=== PATIENT | female | born 1955 | race Caucasian/White ===

== ENCOUNTER 2016-12-29 21:53 | Inpatient (IN) | payer MEDICARE, MEDICAID ==
[2016-12-29] MEDS ORDERED: Nitroglycerin 2% OINT* 1 GM PAK TOPICAL ONE (22:20)
[2016-12-29] MEDS ORDERED: Nitroglycerin 2% OINT* 1 GM PAK ONE (22:34)
[2016-12-29 22:38] LABS: Hematocrit 33 % (35-47); Hemoglobin 11.1 g/dl (12.0-16.0); Mean Corpuscular HGB Conc 33 g/dl (31-36); Mean Corpuscular Hemoglobin 29 pg (27-31); Mean Corpuscular Volume 86 fL (80-97); Mean Platelet Volume 9 um3 (7.4-10.4); Red Blood Count 3.89 10^6/ul (4.0-5.4); Red Cell Distribution Width 18 % (10.5-15); White Blood Count 11.9 10^3/ul (3.5-10.8)
[2016-12-29 22:51] LABS: Albumin 3.9 g/dL (3.2-5.2); BUN/Creatinine Ratio 14.3 (8-20); Calcium 8.7 mg/dL (8.6-10.3); EGFR African American 89.2 (>60); EGFR Non-African American 69.4 (>60); Globulin 3.4 g/dL (2-4); Magnesium 1.3 mg/dL (1.9-2.7); Total Bilirubin 0.8 mg/dL (0.2-1.0); Total Protein 7.3 g/dL (6.4-8.9)
[2016-12-29 22:52] LABS: Potassium 3.8 mmol/L (3.5-5.0); Troponin I 0.01 ng/mL (<0.04)
--- NOTE | 2016-12-29 23:06 | RAD ---
Indication: Chest pain. Single frontal view of the chest performed at 2230 hours was reviewed. No prior studies available for comparison.. No mediastinal shift is noted. Heart is of normal size and configuration. Lung corea appear clear. Cervical fusion is noted. IMPRESSION: NO ACTIVE CARDIOPULMONARY DISEASE IS NOTED.
--- NOTE | 2016-12-30 00:47 | ED ---
Cristhian Dowd Adam, scribed for Chepe Leon on 12/29/16 at 2206 . HPI Chest Pain - HPI Summary HPI Summary: Pt is a 61 year old female presenting with chest pain. It set on at 20:45 as the pt was finishing dinner and it has been constant since then. It is located in the right anterior region of her chest and it radiates to her right arm. She describes the pain as a heaviness that is a 6/10 in severity. She took NTG after the pain set on but the pain has persisted. Pt also c/o SOB and dizziness. She denies abdominal pain and diaphoresis. PMHx of AK x2. She last had a cardiac catheterization approximately 5 years ago. She has no stents. She states that she had a "non-stress" stress test after the catheterization 5 years ago. She is followed by her capital markets specialist. She takes baby ASA every day. Pt denies any Hx of tobacco, alcohol, or drug use. FMHx of cardiac disease. - History of Current Complaint Chief Complaint: EDChestWallPain Time Seen by Provider: 12/29/16 22:01 Hx Obtained From: Patient Onset/Duration: Started Hours Ago, Atraumatic, Still Present Timing: Constant Initial Severity: Moderate Current Severity: Moderate Pain Intensity: 6 Pain Scale Used: 0-10 Numeric Chest Pain Location: Right Anterior Chest Pain Radiates: Yes Chest Pain Radiates To:: Arm - Right Character: Heaviness Aggravating Factor(s): Nothing Alleviating Factor(s): Nothing Associated Signs and Symptoms: Positive: Dizziness, Shortness of Breath. Negative: Diaphoresis, Abdominal Pain - Allergy/Home Medications Allergies/Adverse Reactions: Allergies Allergy/AdvReac Type Severity Reaction Status Date / Time Clarithromycin Allergy Hives Verified 12/29/16 23:04 Tramadol [From Ultracet] Allergy Hives Verified 12/29/16 22:24 PMH/Surg Hx/FS Hx/Imm Hx Endocrine/Hematology History: Reports: Hx Diabetes Cardiovascular History: Reports: Hx Hypertension, Hx Myocardial Infarction Infectious Disease History: Denies: Traveled Outside the [place] in Last 30 Days - Family History Known Family History: Positive: Cardiac Disease - Social History Occupation: Unemployed Lives: With Family Alcohol Use: None Hx Substance Use: No Substance Use Type: Reports: None Hx Tobacco Use: No Smoking Status (MU): Never Smoked Tobacco Review of Systems Negative: Fever, Skin Diaphoresis Positive: Chest Pain Positive: Shortness Of Breath Negative: Abdominal Pain Neurological: Other - Dizziness All Other Systems Reviewed And Are Negative: Yes Physical Exam Triage Information Reviewed: Yes Vital Signs Reviewed: Yes Appearance: Positive: Well-Appearing, No Pain Distress Skin: Positive: Warm, Skin Color Reflects Adequate Perfusion, Dry Head/Face: Positive: Normal Head/Face Inspection Eyes: Positive: EOMI, SMITHA ENT: Positive: Normal ENT inspection Neck: Positive: Supple, Nontender Respiratory/Lung Sounds: Positive: Clear to Auscultation, Breath Sounds Present Cardiovascular: Positive: RRR, Pulses are Symmetrical in both Upper and Lower Extremities Abdomen Description: Positive: Nontender, Soft Bowel Sounds: Positive: Present Musculoskeletal: Positive: Normal, Strength/ROM Intact Diagnostics - Laboratory Result Diagrams: 12/29/16 22:12 12/29/16 22:12 Lab Statement: Any lab studies that have been ordered have been reviewed, and results considered in the medical decision making process. - Radiology CXR Radiology Interpretation Completed By: Radiologist - IMPRESSION: NO ACTIVE CARDIOPULMONARY DISEASE IS NOTED. - EKG 22:04 Cardiac Rate: Bradycardia - 59 BPM EKG Rhythm: Sinus Bradycardia - Additional Comments Diagnostic Additional Comments: Troponin I - 0.01 Chest Pain Course/Dx - Diagnoses Provider Diagnoses: Chest pain, Unstable angina - Provider Notifications Discussed Care Of Patient With: Dr. Brannon (hospitalist) at 23:30. Patient will be admitted. Dr. Brannon will decide upon anticoagulant therapy as per discussion. Discharge - Discharge Plan Condition: Stable Disposition: ADMITTED TO [facility] Referrals: No Primary Care Phys,NOPCP [Primary Care Provider] - The documentation as recorded by the Cristhian kang Adam accurately reflects the service I personally performed and the decisions made by , Chepe Leon.
[2016-12-30] MEDS ORDERED: (Combivent Respimat) INH PRN (01:04)
[2016-12-30] MEDS ORDERED: Heparin DRIP 25,000 UNITS(*) 25,000 UNITS/500 ML BAG IV SCH (01:15)
[2016-12-30] MEDS ORDERED: Diclofenac 1% GEL (NF) 100 GM TUBE TOPICAL SCH (01:30)
[2016-12-30] MEDS ORDERED: Heparin VIAL(*) 5000 UNITS/ML VIAL (FIVE THOUSAND) IV SCH (02:00)
[2016-12-30] MEDS ORDERED: Dextrose 50% Syringe 50 ML* 25 GM/50 ML SYRINGE IV PUSH PRN (02:14)
[2016-12-30 03:20] LABS: Hematocrit 32 % (35-47); Hemoglobin 10.7 g/dl (12.0-16.0); Mean Corpuscular HGB Conc 33 g/dl (31-36); Mean Corpuscular Hemoglobin 29 pg (27-31); Mean Corpuscular Volume 86 fL (80-97); Mean Platelet Volume 9 um3 (7.4-10.4); Red Blood Count 3.75 10^6/ul (4.0-5.4); Red Cell Distribution Width 17 % (10.5-15); White Blood Count 11.5 10^3/ul (3.5-10.8)
--- NOTE | 2016-12-30 03:53 | HP ---
HISTORY AND PHYSICAL: DATE OF ADMISSION: CHIEF COMPLAINT: Chest pain. HISTORY OF PRESENT ILLNESS: The patient is a 61-year-old woman who just had supper and then developed jaw pain on the right side, which became chest pain that radiated to her right arm. At its worst, it was 8/10 in severity. She took her nitroglycerin, which did not help, so she called the EMS. She got 4 baby aspirin and 4 sublingual nitroglycerin by EMS and still did not help much. She had no nausea or vomiting. She had no sweating. She had some slight shortness of breath and no palpitations. She became concerned because this is how her 2 MIs presented in the past. She received a nitro patch in the ER and the pain resolved. PAST MEDICAL HISTORY: Significant for coronary artery disease with 2 MIs, but not stents. Diabetes mellitus type2, hypothyroidism, hypertension, renal cell carcinoma, asthma, sleep apnea, on CPAP, rheumatoid arthritis. PAST SURGICAL HISTORY: Brain meningioma resected, low back laminectomy, bilateral knee replacements, appendectomy, cholecystectomy, JOSE and BSO, ankle surgery, partial nephrectomy. CURRENT MEDICATIONS: 1. Ranexa 500 mg twice daily. 2. Nasonex 50 mcg inhaled daily. 3. Cyclosporin 2 drops both eyes twice daily. 4. Combivent 1 inhaled daily as needed. 5. Ranitidine 300 mg at bedtime. 6. Pataday one drop both eyes daily. 7. Protonix 40 mg twice daily. 8. Imipramine 20 mg at bedtime. 9. Carvedilol 50 mg daily. 10. Aspirin 81 mg daily. 11. Metformin twice daily. 12. Levothyroxine 125 mcg daily. 13. Bydureon 2 mg subcu weekly. 14. Mometasone 50 mcg inhaled twice daily. 15. Hydrochlorothiazide 12.5 daily. 16. Losartan 50 mg daily. 17. Isosorbide mononitrate ER 60 mg daily. 18. Rosuvastatin 10 mg daily. 19. Diltiazem HCl 180 mg daily. 20. Triamcinolone apply twice daily. 21. Enbrel 50 mg subcu q.7 days. 22. Voltaren apply topically weekly. 23. Zanaflex 8 mg at bedtime. 24. Methotrexate 20 mg every week. 25. Folic acid 1 mg daily. 26. Duloxetine 60 mg daily. 27. Gabapentin 300 mg three times a day. FAMILY HISTORY: Mother at 70, had acute renal failure, diabetes. Father at 79 of bladder cancer. SOCIAL HISTORY: No tobacco, no alcohol or recreational drug use. 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 She is . Her sister, Christina Garrison, is her healthcare proxy. Doughnut Icer is Dr. Bass in [place]. REVIEW OF SYSTEMS: A 14-point review of systems was completed with the patient. All pertinent positive and negatives included in the history of present illness, otherwise it is negative. PHYSICAL EXAMINATION GENERAL: A pleasant woman, lying in bed, in no acute distress. VITAL SIGNS: Blood pressure , pulse ox 97%, respiratory rate 17 breaths per minute, heart rate 68 beats per minute, temperature of 98.5. HEENT: Normocephalic, atraumatic. Pupils equal, round, and reactive to light. Moist mucous membranes. NECK: Supple. No JVD, bruits, palpable thyroid, or lymphadenopathy. CHEST: Clear to auscultation and percussion bilaterally. CARDIOVASCULAR: S1, S2 appreciated. ABDOMEN: Positive bowel sounds in all 4 quadrants. Soft, nontender, nondistended. EXTREMITIES: No cyanosis, clubbing, or edema. +2 peripheral pulses bilaterally. NEUROLOGIC: Alert and oriented x 3. Moves all extremities. SKIN: No rashes or abnormalities. LABORATORY DATA: White count 11.9, hemoglobin 11.1, hematocrit 33, platelets 252. INR of 1.18. Sodium 132, potassium 3.8, chloride 95, CO2 30, BUN 12, creatinine 0.84, glucose 109. Troponin 0.01. Chest x-ray shows no active cardiopulmonary disease. EKG shows sinus bradycardia, 59 beats per minute. Left axis deviation. Left anterior hemiblock and no acute ST-T wave changes. ASSESSMENT AND PLAN: 1. Unstable angina. I believe this is what the patient has. I will put her on heparin drip. I will ask Cardiology to see her in the morning. She may benefit from the cardiac catheterization. I will cycle troponins as well. 2. Hypothyroidism, stable. Continue Synthroid. 3. Diabetes mellitus. Fingerstick with sliding scale insulin. 4. Rheumatoid arthritis, asymptomatic. Enbrel and methotrexate as an outpatient. 5. Hypertension, poor control. Continue with current medications and adjust accordingly. 6. DVT prophylaxis. Heparin drip. 7. FEN, n.p.o. 8. The patient is a full code. TIME SPENT: Over 75 minutes were spent on this H and P, more than 40 minutes was spent in direct face to face contact with the patient, evaluation, physical examination, counseling and coordination of care. CC: Dr. Leona Gaona [place]* [id number]/CPS #: [id number] MTDD
[2016-12-30 05:58] LABS: Hematocrit 32 % (35-47); Hemoglobin 10.8 g/dl (12.0-16.0); Mean Corpuscular HGB Conc 34 g/dl (31-36); Mean Corpuscular Hemoglobin 29 pg (27-31); Mean Corpuscular Volume 86 fL (80-97); Mean Platelet Volume 9 um3 (7.4-10.4); Red Blood Count 3.74 10^6/ul (4.0-5.4); Red Cell Distribution Width 17 % (10.5-15); White Blood Count 10.3 10^3/ul (3.5-10.8)
[2016-12-30] MEDS ORDERED: Insulin LISPRO* 1 UNITS UNIT SUBCUT SCH ×2 (06:00→11:30)
[2016-12-30] MEDS ORDERED: Levothyroxine TAB* 125 MCG TAB PO SCH (06:00)
[2016-12-30 06:16] LABS: Troponin I 0.01 ng/mL (<0.04)
[2016-12-30] MEDS: Gabapentin CAP(*) 300 MG PO SCH ×2 (08:18→13:01)
[2016-12-30] MEDS ORDERED: Diltiazem CD CAP* 180 MG PO SCH (09:00)
[2016-12-30] MEDS ORDERED: Folic Acid TAB* 1 MG PO SCH (09:00)
[2016-12-30] MEDS ORDERED: Omeprazole CAP* 20 MG PO SCH (09:00)
[2016-12-30] MEDS ORDERED: Atorvastatin* 20 MG TAB PO SCH (09:00)
[2016-12-30] MEDS ORDERED: Hydrochlorothiazide TAB* 25 MG PO SCH (09:00)
[2016-12-30] MEDS ORDERED: Triamcinolone 0.5% OINT * 15 GM TUBE TOPICAL SCH (09:00)
[2016-12-30] MEDS ORDERED: Isosorbide Mononitrate ER TAB* 60 MG PO SCH (09:00)
[2016-12-30] MEDS ORDERED: Losartan TAB* 25 MG PO SCH (09:00)
[2016-12-30] MEDS ORDERED: DULoxetine DR CAP* 60 MG CAP.DR PO SCH (09:00)
[2016-12-30] MEDS ORDERED: Olopatadine 0.2% (NF) 1 DROP BTL BOTH EYES SCH (09:00)
[2016-12-30] MEDS ORDERED: Cyclosporine 0.05% OPHTH (NF) 0.4 ML VIAL BOTH EYES SCH (09:00)
[2016-12-30] MEDS ORDERED: Ranolazine (NF) 500 MG TAB PO SCH (09:00)
[2016-12-30] MEDS ORDERED: Aspirin EC Low Dose* 81 MG TAB.EC PO SCH (09:00)
[2016-12-30] MEDS ORDERED: Carvedilol TAB* 25 MG PO SCH (09:00)
[2016-12-30] MEDS ORDERED: Nitroglycerin 0.4 MG/HR PATCH* (10 MG) TRANSDERM SCH (09:00)
--- NOTE | 2016-12-30 11:24 | PN ---
Subjective Date of Service: 12/30/16 Interval History: patient denies any further CP and feels that she is at her baseline. PATIENT DOES NOT WANT TO STAY FOR A CARDIAC STRESS TEST TOMORROW - HER TWO SISTERS ARE AT THE BEDSIDE AND WANT THE PATIENT TO BE dc'D TO HOME AND FOLLOW UP WITH HER OWN CERTIFIED SCRUM MASTER. I SPOKE WITH THE PATIENT AND THE SISTERS AND THEY AGREED TO MEET WITH DR. ESCOBAR - WHO RECOMMENDED STRESS TEST TOMORROW. THE PATIENT STATED AGAIN SHE WANTS TO SIGN OUT AMA AND SHE STATES SHE UNDERSTANDS THE RISKS OF , DISABILITY, NE, SEVERE ILLNESS. Objective Active Medications: Albuterol/Ipratropium (Combivent Respimat(Nf)) 1 puff INH DAILY PRN; Protocol PRN Reason: WHEEZING Aspirin (Aspirin Ec Low Dose*) 81 mg PO DAILY [facility] Last Admin: 12/30/16 08:18 Dose: 81 mg Atorvastatin Calcium (Lipitor*) 20 mg PO DAILY ALFREDO PRN Reason: Protocol Last Admin: 12/30/16 08:17 Dose: 20 mg Carvedilol (Coreg Tab*) 50 mg PO DAILY [facility] Last Admin: 12/30/16 08:19 Dose: 50 mg Cyclosporine (Restasis 0.05% Oph) 2 drop BOTH EYES BID ALFREDO PRN Reason: Protocol Last Admin: 12/30/16 08:21 Dose: Not Given Dextrose (D50w Syringe 50 Ml*) 12.5 gm IV PUSH .FOR FS < 60 - SS PRN PRN Reason: FS < 60 Diclofenac Sodium (Voltaren 1% Gel (Nf)) 1 applic TOPICAL WEEKLY [facility] PRN Reason: Protocol Diltiazem HCl (Cardizem Cd Cap*) 180 mg PO DAILY [facility] Last Admin: 12/30/16 08:19 Dose: 180 mg Duloxetine HCl (Cymbalta Cap*) 60 mg PO DAILY [facility] Last Admin: 12/30/16 08:16 Dose: 60 mg Famotidine (Pepcid Tab*) 40 mg PO BEDTIME ALFREDO PRN Reason: Protocol Folic Acid (Folvite Tab*) 1 mg PO DAILY [facility] Last Admin: 12/30/16 08:18 Dose: 1 mg Gabapentin (Neurontin Cap(*)) 300 mg PO TID [facility] Last Admin: 12/30/16 08:18 Dose: 300 mg Heparin Sodium (Porcine) (Heparin Vial(*)) 0 units IV .PER PROTOCOL ALFREDO PRN Reason: Protocol Hydrochlorothiazide (Hydrodiuril Tab*) 12.5 mg PO DAILY [facility] Last Admin: 12/30/16 08:17 Dose: 12.5 mg Heparin Sodium/Dextrose (Heparin Drip 25,000 Units(*)) 25,000 units in 500 mls @ 0 mls/hr IV .NO INITIAL BOLUS ALFREDO; As Directed PRN Reason: Protocol Last Admin: 12/30/16 02:59 Dose: 23 mls/hr Magnesium Sulfate (Magnesium Sulf 4 Gm/100 Ml Iv*) 4,000 mg in 100 mls @ 33.333 mls/hr IVPB ONCE ONE Stop: 12/30/16 14:16 Imipramine HCl (Imipramine (Nf)) 20 mg PO BEDTIME ALFREDO PRN Reason: Protocol Insulin Human Lispro (Humalog*) 0 units SUBCUT Q6HR ALFREDO PRN Reason: Protocol Last Admin: 12/30/16 06:27 Dose: 3 units Isosorbide Mononitrate (Imdur Er Tab*) 60 mg PO DAILY [facility] Last Admin: 12/30/16 08:19 Dose: 60 mg Levothyroxine Sodium (Synthroid Tab*) 125 mcg PO 0600 [facility] Last Admin: 12/30/16 06:26 Dose: 125 mcg Losartan Potassium (Cozaar Tab*) 50 mg PO DAILY [facility] Last Admin: 12/30/16 08:16 Dose: 50 mg Nitroglycerin (Nitroglycerin 10 Mg Patch*) 1 patch TRANSDERM DAILY [facility] Last Admin: 12/30/16 08:22 Dose: 1 patch Olopatadine HCl (Pataday 0.2% (Nf)) 1 drop BOTH EYES DAILY [facility] Last Admin: 12/30/16 08:21 Dose: Not Given Omeprazole (Prilosec Cap*) 20 mg PO BID [facility] Last Admin: 12/30/16 08:19 Dose: 20 mg Pharmacy Profile Note (Nitro Patch/Oint Remove*) 1 note PATCH OFF 2100 [facility] Ranolazine (Ranexa (Nf)) 500 mg PO BID ALFREDO PRN Reason: Protocol Last Admin: 12/30/16 08:21 Dose: Not Given Tizanidine HCl (Zanaflex Tab*) 8 mg PO BEDTIME [facility] Triamcinolone Acetonide (Triamcinolone 0.5% Oint *) 1 applic TOPICAL BID [facility] Last Admin: 12/30/16 08:20 Dose: 1 applic Vital Signs 12/30/16 12/30/16 12/30/16 02:09 06:52 08:01 Temperature 97.7 F 98.5 F Pulse Rate 61 63 Respiratory 16 18 18 Rate Blood Pressure 154/88 161/83 (mmHg) O2 Sat by Pulse 97 97 Oximetry 12/30/16 12/30/16 08:18 10:06 Temperature Pulse Rate Respiratory 18 18 Rate Blood Pressure (mmHg) O2 Sat by Pulse Oximetry Oxygen Devices in Use Now: None Appearance: OBESE 61 YO FEMALE LAYINGIN BED IN NAD A+O x3 Eyes: No Scleral Icterus, PERRLA Ears/Nose/Mouth/Throat: NL Teeth, Lips, Gums, Mucous Membranes Moist Neck: NL Appearance and Movements; NL JVP Respiratory: Symmetrical Chest Expansion and Respiratory Effort, Clear to Auscultation Cardiovascular: NL Sounds; No Murmurs; No JVD, RRR, No Edema Abdominal: NL Sounds; No Tenderness; No Distention, - - obese Extremities: No Edema, No Clubbing, Cyanosis Skin: No Rash or Ulcers, No Nodules or Sclerosis Neurological: Alert and Oriented x 3, NL Sensation, NL Gait, NL Muscle Strength and Tone Lines/Tubes/Other Access: Clean, Dry and Intact Peripheral IV Nutrition: Taking PO's Result Diagrams: 12/30/16 11:39 12/30/16 11:35 Assess/Plan/Problems-Billing Assessment: 61 yo female with a PMH of CAD s/p MIs, DM2, hypothyroidism, HTN, rebal cell carcinoma, asthma, DIPESH on CPAP and RA who presented with Chest Pain . - Patient Problems (1) Chest pain Comment: - concern for unstable angina was started on a Heparin gtt on admission. No further CP since admission. Troponins 0.01 x2. EKG showing sinus yudi left axis - no acute ST changes noted. Repeat EKG now, continue to trend trops. - Cardiology consulted who recommended a stress test in am - no ACS. Pt has also had 5 caths with no stenting, some disease noted. Possible vaso-spasm? - continue home meds (2) Rheumatoid arthritis Comment: etanercept and methotrexate as an outpt (3) DIPESH (obstructive sleep apnea) Comment: - continue cpap (4) HTN (hypertension) Comment: continue home medications coreg, losartan, cardizem (5) Diabetes Comment: - FSBG QACHS with Lispro SS (6) Hypothyroidism Comment: - add on TSH - continue synthroid (7) DVT prophylaxis Comment: Heparin gtt (8) Full code status Status and Disposition: inpatient with chest pain concern for unstable angina. PATIENT SIGNED HERSELF OUT AMA.
[2016-12-30] MEDS ORDERED: Magnesium Sulf 4 GM/100 ML IV* 4,000 MG/100 ML BAG IVPB ONE (12:00)
[2016-12-30 12:02] LABS: Hematocrit 33 % (35-47); Hemoglobin 10.7 g/dl (12.0-16.0); Mean Corpuscular HGB Conc 33 g/dl (31-36); Mean Corpuscular Hemoglobin 29 pg (27-31); Mean Corpuscular Volume 87 fL (80-97); Mean Platelet Volume 9 um3 (7.4-10.4); Red Blood Count 3.73 10^6/ul (4.0-5.4); Red Cell Distribution Width 17 % (10.5-15); White Blood Count 7.5 10^3/ul (3.5-10.8)
[2016-12-30 12:07] VITALS: BP 126/52
[2016-12-30 12:12] LABS: TSH (Thyroid Stimulating Horm) 1.98 mcIU/mL (0.34-5.60)
[2016-12-30 12:20] LABS: BUN/Creatinine Ratio 16.9 (8-20); Calcium 8.8 mg/dL (8.6-10.3); EGFR Non-African American 93.3 (>60); Magnesium 1.4 mg/dL (1.9-2.7); Potassium 3.6 mmol/L (3.5-5.0)
[2016-12-30 13:29] LABS: Troponin I 0.01 ng/mL (<0.04)
--- NOTE | 2016-12-30 15:23 | CONSULT ---
Subjective Date of Service: 12/30/16 Interval History: Admission Date: 12/30/16 Service: Hospitalist PMD: Dr. Leona Gaona, [place] CHIEF COMPLAINT: Chest pain. Reason for consult HISTORY OF PRESENT ILLNESS: Kaylan Ontiveros is a 61-year-old woman who lives with her two sisters who are present. They live in the [place] area but were here taking a drive as they often do. Patient had finished dinner near [place] and developed right sided jaw and chest pressure that radiated to her right arm. She took a SL NTG with no relief. She was going to take another but EMS was there by then. She states she received 4 baby aspirins and 4 more SL NTGs in EMS did not help at all. Came to [facility] states was given another SL NTG and a patch and discomfort went from a 8 to a 6/10. By the time she reached telemetry floor discomfort was 1-2/10 and gradually dissipated throughout the night. She has remained pain free since then. There was no change in breathing, palpitations, or syncope. I do not have her prior records but she states she had a silent CT at some point , then a known CT in 1983. She has had an atrial fibrillation ablation. She has had 5 diagnostic coronary angiograms most recently last year that showed some blockage "not enough to stent" and some very mild plaque in other places. She is being treated with multiple anti-anginals. PAST MEDICAL HISTORY: Atrial fibrillation CAD DM hypothyroidism, hypertension, renal cell carcinoma, asthma, sleep apnea, on CPAP, rheumatoid arthritis. PAST SURGICAL HISTORY: Brain meningioma resected, low back laminectomy, bilateral knee replacements, appendectomy, cholecystectomy, JOSE and BSO, ankle surgery, partial nephrectomy. FAMILY HISTORY: Mother at 70, had acute renal failure, diabetes. Father at 79 of bladder cancer. SOCIAL HISTORY: No tobacco, no alcohol or recreational drug use. 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 She is . Her sister, Christina Garrison, is her healthcare proxy. Instrument Lens Grinder Apprentice is Dr. Bass in [place]. Medications Active Medications: Albuterol/Ipratropium (Combivent Respimat(Nf)) 1 puff INH DAILY PRN; Protocol PRN Reason: WHEEZING Aspirin (Aspirin Ec Low Dose*) 81 mg PO DAILY [facility] Last Admin: 12/30/16 08:18 Dose: 81 mg Atorvastatin Calcium (Lipitor*) 20 mg PO DAILY [facility] PRN Reason: Protocol Last Admin: 12/30/16 08:17 Dose: 20 mg Carvedilol (Coreg Tab*) 50 mg PO DAILY [facility] Last Admin: 12/30/16 08:19 Dose: 50 mg Cyclosporine (Restasis 0.05% Ophth) 2 drop BOTH EYES BID [facility]FR[facility] PRN Reason: Protocol Last Admin: 12/30/16 08:21 Dose: Not Given Dextrose (D50w Syringe 50 Ml*) 12.5 gm IV PUSH .FOR FS < 60 - SS PRN PRN Reason: FS < 60 Diclofenac Sodium (Voltaren 1% Gel (Nf)) 1 applic TOPICAL WEEKLY [facility]FR[facility] PRN Reason: Protocol Diltiazem HCl (Cardizem Cd Cap*) 180 mg PO DAILY [facility] Last Admin: 12/30/16 08:19 Dose: 180 mg Duloxetine HCl (Cymbalta Cap*) 60 mg PO DAILY [facility] Last Admin: 12/30/16 08:16 Dose: 60 mg Famotidine (Pepcid Tab*) 40 mg PO BEDTIME [facility] PRN Reason: Protocol Folic Acid (Folvite Tab*) 1 mg PO DAILY [facility] Last Admin: 12/30/16 08:18 Dose: 1 mg Gabapentin (Neurontin Cap(*)) 300 mg PO TID [facility] Last Admin: 12/30/16 13:01 Dose: 300 mg Heparin Sodium (Porcine) (Heparin Vial(*)) 0 units IV .PER PROTOCOL [facility] PRN Reason: Protocol Last Admin: 12/30/16 12:27 Dose: 3,250 units Hydrochlorothiazide (Hydrodiuril Tab*) 12.5 mg PO DAILY [facility] Last Admin: 12/30/16 08:17 Dose: 12.5 mg Heparin Sodium/Dextrose (Heparin Drip 25,000 Units(*)) 25,000 units in 500 mls @ 0 mls/hr IV .NO INITIAL BOLUS ALFREDO; As Directed PRN Reason: Protocol Last Admin: 12/30/16 02:59 Dose: 23 mls/hr Imipramine HCl (Imipramine (Nf)) 20 mg PO BEDTIME [facility] PRN Reason: Protocol Insulin Human Lispro (Humalog*) 0 units SUBCUT ACHS [facility] PRN Reason: Protocol Last Admin: 12/30/16 11:37 Dose: 3 units Isosorbide Mononitrate (Imdur Er Tab*) 60 mg PO DAILY [facility] Last Admin: 12/30/16 08:19 Dose: 60 mg Levothyroxine Sodium (Synthroid Tab*) 125 mcg PO 0600 [facility] Last Admin: 12/30/16 06:26 Dose: 125 mcg Losartan Potassium (Cozaar Tab*) 50 mg PO DAILY [facility] Last Admin: 12/30/16 08:16 Dose: 50 mg Nitroglycerin (Nitroglycerin 10 Mg Patch*) 1 patch TRANSDERM DAILY [facility] Last Admin: 12/30/16 08:22 Dose: 1 patch Olopatadine HCl (Pataday 0.2% (Nf)) 1 drop BOTH EYES DAILY [facility] Last Admin: 12/30/16 08:21 Dose: Not Given Omeprazole (Prilosec Cap*) 20 mg PO BID [facility] Last Admin: 12/30/16 08:19 Dose: 20 mg Pharmacy Profile Note (Nitro Patch/Oint Remove*) 1 note PATCH OFF 2100 [facility] Ranolazine (Ranexa (Nf)) 500 mg PO BID [facility] PRN Reason: Protocol Last Admin: 12/30/16 08:21 Dose: Not Given Tizanidine HCl (Zanaflex Tab*) 8 mg PO BEDTIME [facility] Triamcinolone Acetonide (Triamcinolone 0.5% Oint *) 1 applic TOPICAL BID [facility] Last Admin: 12/30/16 08:20 Dose: 1 applic Home Medications: Albuterol/Ipratropium RESP(NF) [Combivent Respimat(NF)] 1 aer INH DAILY PRN [History Confirmed 12/30/16] Aspirin [Aspirin 81 MG TAB] 81 mg PO DAILY 12/30/16 [History Confirmed 12/30/16] Carvedilol TAB* [Coreg TAB*] 50 mg PO DAILY 12/30/16 [History Confirmed 12/30/16 ] Cyclosporine 0.05% OPHTH (NF) [Restasis 0.05% OPHTH] 2 drop BOTH EYES BID [History Confirmed 12/30/16] DULoxetine CAP* [Cymbalta CAP*] 60 mg PO DAILY 12/30/16 [History Confirmed ] Diclofenac 1% GEL (NF) [Voltaren 1% GEL (NF)] 1 applic TOPICAL WEEKLY 12/30/16 [ History Confirmed 12/30/16] Diltiazem HCl Coated Beads [Cartia Xt] 180 mg PO DAILY 12/30/16 [History Confirmed 12/30/16] Etanercept SYR (NF) [Enbrel (NF)] 50 mg SUBCUT Q7D 12/30/16 [History Confirmed 12/30/16] Exenatide [Bydureon] 2 mg SUBCUT WEEKLY 12/30/16 [History Confirmed 12/30/16] Folic Acid TAB* [Folvite TAB*] 1 mg PO DAILY 12/30/16 [History Confirmed ] Gabapentin CAP(*) [Neurontin 300 CAP(*)] 300 mg PO TID 12/30/16 [History Confirmed 12/30/16] Hydrochlorothiazide [Microzide-] 12.5 mg PO DAILY 12/30/16 [History Confirmed ] Imipramine (NF) 20 mg PO BEDTIME 12/30/16 [History Confirmed 12/30/16] Isosorbide Mononitrate ER TAB* [Imdur ER TAB*] 60 mg PO DAILY 12/30/16 [History Confirmed 12/30/16] Levothyroxine TAB* [Synthroid TAB*] 125 mcg PO DAILY 12/30/16 [History Confirmed 12/30/16] Losartan Potassium [Cozaar] 50 mg PO DAILY 12/30/16 [History Confirmed 12/30/16] Methotrexate TAB* 20 mg PO Q7D 12/30/16 [History Confirmed 12/30/16] Mometasone NASAL (NF) [Nasonex (NF)] 50 mcg INH BID 12/30/16 [History Confirmed 12/30/16] Mometasone NASAL (NF) [Nasonex (NF)] 50 mcg INH DAILY 12/30/16 [History Confirmed 12/30/16] Olopatadine 0.2% (NF) [Pataday 0.2% (NF)] 1 drop BOTH EYES DAILY 12/30/16 [ History Confirmed 12/30/16] Pantoprazole TAB (NF) [Protonix TAB (NF)] 40 mg PO BID 12/30/16 [History Confirmed 12/30/16] Ranitidine TAB (NF) [Zantac TAB (NF)] 300 mg PO BEDTIME 12/30/16 [History Confirmed 12/30/16] Ranolazine (NF) [Ranexa (NF)] 500 mg PO BID 12/30/16 [History Confirmed 12/30/16 ] Rosuvastatin (NF) [Crestor (NF)] 10 mg PO DAILY 12/30/16 [History Confirmed ] Tizanidine HCl [Zanaflex] 8 mg PO BEDTIME 12/30/16 [History Confirmed 12/30/16] Triamcinolone 0.5% OINT * 1 applic TOPICAL BID 12/30/16 [History Confirmed 12/30] metFORMIN* [Glucophage 1000 MG TAB *] 1,000 mg PO BID 12/30/16 [History Confirmed 12/30/16] Review of Systems - Measurements Intake and Output: Intake and Output Last 24 Hours 12/28/16 12/29/16 12/30/16 12/31/16 06:59 06:59 06:59 06:59 Intake Total 87 360 Balance 87 360 Weight 255 lb Intake: Heparin 87 Oral 0 360 Other: Estimated Void Medium # Bowel Movements 0 # Voids 2 - Review of Systems Constitutional Symptoms: Negative: Weight Loss, Weakness, Fatigue, Fever, Unexplained Falls Dermatology: Negative: Rash, Skin Lesions, Skin Lumps HEENT: Negative: Change in Hearing, Vertigo, Tinnitus Eyes: Negative: Change in Vision, Double Vision, Eye Pain Thyroid: Negative: Sweatiness, Palpitations, Weight Loss, Weight Gain, Change in Skin/ Hair, Change in Menstration Pulmonary: Negative: Cough, Sputum, Hemoptysis, Wheezing, Respiratory Distress Cardiology: Positive: Chest Pain Negative: Shortness of Breath, Palpitations, Swelling of Ankles, Peripheral Vascular Dis, Edema, Faintness, Syncope, Claudication, Paroxysmal Nocturnal Dyspnea, Orthopnea Gastroenterology: Negative: Abdominal Pain, Nausea, Vomiting, Anorexia, Melena Genital - Urinary: Negative: Dysuria, Hematuria Musculoskeletal: Negative: Joint Pain, Joint Stiffness, Arthritis Endocrinology: Positive: Obesity Negative: Menstrual Abnormalities, Polydipsia, Polyuria, Gynecomastia Hematologic/Lymphatic: Positive: Use of Antiplatelet Drugs Negative: Hx Leukemia, Hx Lymphoma, Use of Anticoagulant Neurology: Negative: Headaches, Migraines, Change in Vision, Diplopia, Dizziness, Change in Balancing, Change in Coordination, Change in Memory, Hx of Stroke\\TIA , Hx Seizures Psychiatry: Negative: Sexual Dysfunction, Weight Change, Guilt Feelings, Tearfulness Allergic/Immunologic: Negative: Hx HIV, Immunocompromise, Swollen Glands Lymph Nodes Review of Systems Statement: All other review of systems negative, unless stated above. Objective Vital Signs: Temp Pulse Resp BP Pulse Ox 98.3 F 62 18 126/52 96 12/30/16 11:34 12/30/16 11:34 12/30/16 15:01 12/30/16 11:34 12/30/16 11:34 Ears/Nose/Mouth/Throat: Clear Oropharnyx, Mucous Membranes Moist Neck: Trachea Midline Respiratory: Symmetrical Chest Expansion and Respiratory Effort, Clear to Auscultation Cardiovascular: NL Sounds; No Murmurs; No JVD, RRR, No Edema Abdominal: NL Sounds; No Tenderness; No Distention Extremities: No Edema, No Clubbing, Cyanosis Skin: No Rash or Ulcers Neurological: Alert and Oriented x 3 Laboratory Results: 12/30/16 11:39 12/30/16 11:35 INR (Anticoag Therapy) 1.18 (0.89-1.11) H 12/29/16 22:12 APTT 41.2 seconds (26.0-36.3) H 12/30/16 11:39 Total Bilirubin 0.80 mg/dL (0.2-1.0) 12/29/16 22:12 AST 46 U/L (13-39) H 12/29/16 22:12 ALT 37 U/L (7-52) 12/29/16 22:12 Alkaline Phosphatase 61 U/L (34-104) 12/29/16 22:12 B-Natriuretic Peptide 14 pg/mL (-100) 12/29/16 22:12 Total Protein 7.3 g/dL (6.4-8.9) 12/29/16 22:12 Albumin 3.9 g/dL (3.2-5.2) 12/29/16 22:12 Globulin 3.4 g/dL (2-4) 12/29/16 22:12 Albumin/Globulin Ratio 1.1 (1-3) 12/29/16 22:12 TSH 1.98 mcIU/mL (0.34-5.60) 12/30/16 05:33 04/22/17 04/23/17 04/23/17 22:12 05:33 11:35 Troponin I 0.01 0.01 0.01 EKG Data: EKG 12/29/2016: NSR, poor R wave progression consider old anteroseptal CT Assessment/Plan I am uncertain the cause of Kaylan's presentation. With chest discomfort that lasted for as long as it did, I would have expected a cardiac cause would have been accompanied by a rise in her serial troponin (they stayed normal) I advised her to stay inpatient while we request records from [place] and likely proceed with an ischemic evaluation after that. She declined and has decided to leave against the medical advise of the hospital. She is going to call her transit authority police officer, Dr. Bass tomorrow morning to arrange follow up
[2016-12-30] MEDS ORDERED: Famotidine TAB* 20 MG PO SCH (21:00)
[2016-12-30] MEDS ORDERED: IMIPRAMINE 10 MG PO SCH (21:00)
[2016-12-30] MEDS ORDERED: tiZANidine TAB* 2 MG PO SCH (21:00)
[2016-12-30] MEDS ORDERED: Nitro Patch/OINT Remove PATCH OFF SCH (21:00)
--- NOTE | 2016-12-31 05:10 | DS ---
DISCHARGE SUMMARY: DATE OF ADMISSION: 12/29/16 DATE OF DISCHARGE: 12/30/16 ATTENDING PHYSICIAN: Krissy Crawford MD * (report dictated by Luisa William NP). PRIMARY CARE PROVIDER: Dr. Leona Gaona, [place], [place]. PLEASE NOTE THE PATIENT LEFT AGAINST MEDICAL ADVICE. SUMMARY: Ms. Ontiveros is a 61-year-old woman who presented to the emergency department on 12/29/16 with complaint of chest pain that radiated to the right side of her jaw and down her right arm, reporting 8/10 in severity. She reports she took one nitroglycerin, which did not help and she called EMS. EMS gave her 4 baby aspirins and 4 sublingual nitroglycerin, which she reports did not help. She denied any nausea or vomiting or diaphoresis. The patient was admitted to the hospitalist service where her initial troponin was 0.01. Her EKG showed sinus bradycardia with a heart rate of 59 with a noted left axis deviation and left anterior hemiblock and no acute ST-T wave changes. On admission, the patient was started on a heparin drip for concern for unstable angina. She was seen this morning by myself. The patient denied any further chest pain. She had 3 troponins, all are 0.01. The patient wanted to be discharged to home with followup with her own coding compliance manager in [place]. The patient reports that she has undergone cardiac catheterizations at [place] and she has known coronary artery disease, but has not had stents placed in the past. She was seen by coding compliance manager, Dr. Shahid, who recommended the patient undergo a cardiac nuclear stress test tomorrow and the patient insisted on being discharged to follow up with her own coding compliance manager. I discussed the risks of unstable angina with the patient as well as risks of , severe disability , and severe illness. The patient states understanding. The patient's two sisters were at the bedside who were encouraging the patient to sign out against medical advice. Again, the risks were discussed. The patient signed out the paperwork and left. TIME SPENT: Approximately 45 minutes was spent. LUISA WILLIAM NP CC: Dr. Cori Zenobia Gaona * [id number]/[facility] #: [id number] [facility]ITAL[facility]
== END 2016-12-30 16:00 | disposition left against medical advice (07) | DRG 303 ==
LOC: EDBD → ED 21:53 → MEDTELE 12-30 02:08
PROVIDERS: ADMIT Internal Medicine; ATTEND Internal Medicine
DX: I25.110 Atherosclerotic heart disease of native coronary artery with unstable angina pectoris (principal); Z68.41 Body mass index [BMI] 40.0-44.9, adult; I10 Essential (primary) hypertension; I48.91 Unspecified atrial fibrillation; R00.1 Bradycardia, unspecified; E66.9 Obesity, unspecified; G47.33 Obstructive sleep apnea (adult) (pediatric); E11.9 Type 2 diabetes mellitus without complications; E03.9 Hypothyroidism, unspecified; J45.909 Unspecified asthma, uncomplicated; M06.9 Rheumatoid arthritis, unspecified; Z96.653 Presence of artificial knee joint, bilateral; I25.2 Old myocardial infarction; Z83.3 Family history of diabetes mellitus; Z88.1 Allergy status to other antibiotic agents; Z88.6 Allergy status to analgesic agent; Z82.49 Family history of ischemic heart disease and other diseases of the circulatory system; Z80.52 Family history of malignant neoplasm of bladder; Z85.528 Personal history of other malignant neoplasm of kidney; Z90.710 Acquired absence of both cervix and uterus; Z79.82 Long term (current) use of aspirin; Z85.841 Personal history of malignant neoplasm of brain
CPT/HCPCS: 36415; 71010; 80048; 80053; 83605; 83735; 83880; 84443; 84484; 84520; 85025; 85610; 85730; 93005; A9270-GY; J1644

== ENCOUNTER 2018-03-22 16:39 | Emergency (ER) | payer MEDICARE, MEDICAID ==
[2018-03-22] MEDS ORDERED: NS 0.9% 1000 ML* 2,000 ML IV SCH (17:30)
[2018-03-22 17:38] LABS: Hematocrit 34 % (35-47); Hemoglobin 11.2 g/dl (12.0-16.0); Mean Corpuscular HGB Conc 33 g/dl (31-36); Mean Corpuscular Hemoglobin 28 pg (27-31); Mean Corpuscular Volume 83 fL (80-97); Mean Platelet Volume 8.4 um3 (7.4-10.4); Platelet Count 324 10^3/ul (150-450); Red Blood Count 4.06 10^6/ul (4.00-5.40); Red Cell Distribution Width 17 % (10.5-15); White Blood Count 18.7 10^3/ul (3.5-10.8)
--- NOTE | 2018-03-22 17:43 | ED ---
HPI Cardiac - HPI Summary HPI Summary: A 62 y/o female CHAVO presents to ED s/p heat exhaustion and near sync[facility]. Currently, the patient is already doing better at time of arrival and has no chest pain or SOB. According to the patient, she was walking down the [place] with her sister and service dog. After walking 3/4 of a mile from the top of the hill down, she exhibited rapid heart beats/heart palpitations coupled with SOB, dizziness and shakes. She denies any CP, nausea, vomit, however she stated that her stomach "feels off" and she has chronic neck pain. She stopped on the trail and received water from a couple walking by. The water seemed to help mildly, however "it did not do a whole lot". Resting, water and getting out of the heat helped alleviate the symptoms. Another family of spectators stopped to check up on them which she believes is the one who notified headquarters of the [facility] [employer]. After walking about a half mile and stopping several times, police and park officials came up and made the patient stop and drink more water with EMS posting shortly after. Pt had to be "ext[place]" from [place] with equipment from EMS. It was noted that another spectator ran up and down the trail to give her water. In the room, patient has a pulse of 81 BPM, blood pressure is 134/78 and O2 saturation of 96%. PMHx of two knee replacements, left ankle total repair, toes repair, appendectomy, gallbladder hysterectomy, two MD's and DM (on trail take EMS, sugar was 212). It was noted that the patient has not eaten lately, but she thinks her sugar is fine, however she is hungry. Her facilities specialist, Dr. Bass, is located in [facility]. She is currently on antibiotics, augmentin and penicillin, for a sinus infection since 03/18/2018. FHx of DM, HTN and heart disease. PCP is Dr. Leona [facility]ona at [facility]. Pt is from the [place] area, however has been in [facility] before, states that she signed out AMA "about a year ago " (noted in records 12/27/16) during an evaluation for chest pain because she felt fine, and just wanted to get home to her own facilities specialist. - History of Current Complaint Chief Complaint: EDGeneral Stated Complaint: PALPITATIONS Time Seen by Provider: 03/22/18 17:15 Hx Obtained From: Patient, Family/Manager Trust - 2 sisters here with patient, Medical Records - [facility] 12/27/16 Onset/Duration: Started Hours Ago - During trail hike, Resolved - No current symptoms. Feels better now. Timing: Lasting Minutes - During trail hike. Initial Severity: Severe - palpitations, no chest pain Current Severity: None Pain Intensity: 0 Pain Scale Used: 0-10 Numeric Chest Pain Radiates: No Character: Fast, Other: - Palpitations. Aggravating Factor(s): Nothing, Exertion, Other: - heat Alleviating Factor(s): Rest, Other: - Water and getting out of heat. Associated Signs and Symptoms: Positive: Dizziness, Shortness of Breath - During hike, not currently, Other: - Rapid heart beats, shakes. Negative: Chest Pain, Nausea, Vomiting Related History: Obesity - Risk Factors Cardiac Risk Factors: Diabetes, Prior MD, CAD - Allergy/Home Medications Allergies/Adverse Reactions: Allergies Allergy/AdvReac Type Severity Reaction Status Date / Time acetaminophen [From Ultracet] Allergy Hives Verified 03/22/18 16:48 tramadol [From Ultracet] Allergy Hives Verified 03/22/18 16:48 bioxin Allergy Airway Uncoded 03/22/18 16:48 Obstruction PMH/Surg Hx/FS Hx/Imm Hx Previously Healthy: No Endocrine/Hematology History: Reports: Hx Diabetes Cardiovascular History: Reports: Hx Angina, Hx Hypertension, Hx Myocardial Infarction Denies: Hx Peripheral Vascular Disease Respiratory History: Reports: Hx Asthma Musculoskeletal History: Denies: Hx Arthritis Sensory History: Denies: Hx Contacts or Glasses, Hx Hearing Aid Opthamlomology History: Denies: Hx Contacts or Glasses Neurological History: Denies: Hx Headaches, Hx Seizures, Hx Transient Ischemic Attacks (TIA) - Cancer History Cancer Type, Location and Year: Kidney, partial nephrectomy - Surgical History Surgery Procedure, Year, and Place: partial nephrectomy Infectious Disease History: No Infectious Disease History: Denies: Traveled Outside the [place] in Last 30 Days - Family History Known Family History: Positive: Cardiac Disease, Hypertension, Diabetes - Social History Alcohol Use: None Hx Substance Use: No Substance Use Type: Reports: None Hx Tobacco Use: No Smoking Status (MU): Never Smoked Tobacco Review of Systems Positive: Other - NEGATIVE: Shakes, during trail hike, currently none. Negative : Fever Positive: Palpitations, Other - POSITIVE: Fast heart rate. Negative: Chest Pain Negative: Shortness Of Breath - During trail hike, currently none Negative: Vomiting, Nausea Positive: Other - POSITIVE: Chronic neck pain Positive: Other - flushed, red Neurological: Other - NEGATIVE: Dizziness, during trail hike, currently none Psychological: Normal All Other Systems Reviewed And Are Negative: Yes Physical Exam - Summary Physical Exam Summary: Appearance: Well-appearing, no pain distress, well-nourished, obese, flushed Skin: Warm, color reflects adequate perfusion, dry Head: Normal Head/Face inspection, atraumatic Eyes: Conjunctiva clear ENT: Normal inspection Neck: Supple, no nodes, no JVD Respiratory: Lungs clear, normal breath sounds, no respiratory distress Cardio: RRR, No murmur, pulses normal, brisk capillary refill Abdomen: Soft, nontender Bowel sounds: Present Musculoskeletal: Strength Intact/ROM intact, no calf tenderness, no edema. Psychological: Normal Neuro: Alert, muscle tone normal, no focal deficit Triage Information Reviewed: Yes Vital Signs On Initial Exam: Initial Vitals Temp Pulse Resp BP Pulse Ox 98.3 F 79 22 147/85 99 03/22/18 16:45 03/22/18 16:45 03/22/18 16:45 03/22/18 16:45 03/22/18 16:45 Vital Signs Reviewed: Yes Diagnostics - Vital Signs Vital Signs Temp Pulse Resp BP Pulse Ox 03/22/18 17:15 81 19 94 03/22/18 17:14 82 19 134/78 94 03/22/18 16:45 98.3 F 79 22 147/85 99 - Laboratory Result Diagrams: 03/22/18 17:30 03/22/18 17:30 Lab Statement: Any lab studies that have been ordered have been reviewed, and results considered in the medical decision making process. - EKG 2046 Cardiac Rate: NL - 65 BPM EKG Rhythm: Sinus Rhythm ST Segment: Non-Specific Ectopy: None EKG Interpretation: nl AV CT, prolonged IVCT in LBBB, nl QTc, axis -30. EKG Comparison: Other - c/w 12/27/2016. Now LBBB Re-Evaluation - Re-Evaluation First Eval Re-Evaluation Time: 20:47 Change: Improved Comment: No chest pain, back feels normal. Sister is with pt. Second Eval Re-Evaluation Time: 21:00 Change: Unchanged Comment: EKG shows new LBBB c/w 12/27/16. Pt states she had a heart catheterization less than 2 years ago, and no stents were done, medical management only. Pt does not know if she has hx of LBBB. Will contact Dr. Neris Bass, pt's facilities specialist in [place]. Disposition - Course Course Of Treatment: A 62 y/o female CHAVO presents to ED s/p heat exhaustion during hike at [employer]. Currently, the patient is already doing better at time of arrival and has no CP or SOB. Pt's labs show leukocytosis, hypokalemia, hypomagnesemia, elevated creat. In the ED course, patient recieved Potassium Chloride 40 mEq po, Mag Oxide po, and IV fluids x 2 liters. EKG showed new LBBB since 12/27/16. This was discussed with pt's facilities specialist vector control specialist, Dr. Peng (covering Dr. Bass). He states that pt's prior EKG's have shown prolongation of QRS in the 106,108,110 range, and that pt had a cadiac cath on 12/27/17 for SOB and atypical chest pain after a normal nuclear scan, which showed a 30% mid LAD lession with nl LV function and medical management was recommended, and pt was taken off Ranexa and isosorbide. Pt's last office visit with Dr. Bass was 03/03/18 and she was doing well. Dr. Peng feels pt can be discharged safely with close follow up in the setting of 2 normal troponins 3 hrs apart. Patient will be discharged with a diagnosis of heat exhaustion, Leukocytosis, Hypomagnesemia, new onset LBBB and Hypokalemia. Follow up with PCP, Dr. Leona Gaona, in 2 days and follow up with Dr. aBss (facilities specialist) in 2 days. - Differential Dx - Cardiopulmonary Differential Diagnoses - Cardiopulmonary: Acute Coronary, Acute Dyspnea, CAD, Other - heat exhaustion, heat stroke - Diagnoses Provider Diagnoses: Heat exhaustion, Leukocytosis, Hypokalemia, New onset left bundle branch block (LBBB) - Physician Notifications Instructed by Provider To: Other - Dr. Peng spoke on behalf for Dr. Bass. Will call back with pt EKG history. Advises pt can be discharged. Discharge - Sign-Out/Discharge Documenting (check all that apply): Patient Departure - DISCHARGE home - Discharge Plan Condition: Stable Disposition: HOME Prescriptions: Potassium Chlor TAB* [Potassium Chlor TAB 20 MEQ*] 40 meq PO DAILY #10 tab.er Patient Education Materials: Heat Exhaustion (ED), Hypokalemia (ED), Heatstroke (ED), Leukocytosis (ED), Hypomagnesemia (ED) Referrals: Leona Ganoa DO [Doctor of Osteopathy] - 2 Days Additional Instructions: You have a new left bundle branch block on your EKG today. We have discussed this with Dr. Peng who is covering for Dr. Bass, your facilities specialist. Your heart catheterization was in December 2017, and showed only 30% blockage in your mid LAD artery with normal LV function. Dr. Peng and I feel that you are a safe discharge at this time, however, you must have definite follow up with Dr. Bass in the next [address] Peng is putting a note in their chart system to be expecting your call. You must go directly to an ER by ambulance if you have any recurrence of chest pain. We have given you a copy of your labs and EKG that were done today. The abnormalities include elevated white blood cell count which we feel is probably a stress response and dehydration, but should definitely be followed up. Also your potassium was 2.9, which we gave you oral replacement for, and have prescribed 5 days more of potassium. Your magnesium was also low, and we gave you oral replacement for that as well. Also your kidney function was decreased. You were given 2 liters of normal saline while you were in the ER today. You will need to have definite follow up with your primary care doctor in [place], and your facilities specialist in [place] in the next 2 days. You will need to continue hydrating. Return to the ER if you have any new or worsening symptoms. - Billing Disposition and Condition Condition: STABLE Disposition: Home
[2018-03-22 17:51] LABS: INR 1.21 (0.77-1.02)
[2018-03-22 17:55] LABS: EGFR Non-African American 41.4 (>60)
[2018-03-22 17:56] LABS: ABS Basophils 0.1 10^3/ul (0-0.2); ABS Eosinophils 0 10^3/ul (0-0.6); ABS Lymphocytes 2.7 10^3/ul (1.0-4.8); ABS Monocytes 1.9 10^3/ul (0-0.8); ABS Nucleated RBC 0 10^3/ul; Eosinophil % 0.1 % (0-6); Lymphocyte % 14.5 % (25-47); Nucleated Red Blood Cells % 0
[2018-03-22 19:03] LABS: Urine Red Blood Cell Trace(0-2/hpf) (Absent); Urine White Blood Cell 3+(>20/hpf) (Absent)
[2018-03-22 19:12] LABS: Urine Appearance Cloudy; Urine Blood Negative (Negative); Urine Color Yellow; Urine Ketones Negative (Negative); Urine Protein 2+(100 mg/dL) (Negative); Urine Urobilinogen Negative (Negative)
[2018-03-22] MEDS ORDERED: Potassium Chlor TAB* 20 MEQ TAB.ER PO ONE (20:28)
[2018-03-22] MEDS ORDERED: Magnesium Oxide TAB* 400 MG PO ONE (20:35)
[2018-03-22 22:10] VITALS: BP 162/94
--- NOTE | 2018-03-25 07:41 | ED ---
Progress - Progress Note Progress Note: Patient's urine culture reveals Dina albicans of 1-10,000. Called her today to follow-up on symptoms from her visit where she was diagnosed with heat exhaustion, dehydration and new left bundle-branch block. She reports she feels "better" since her visit. She also went to see cardiology yesterday and everything is return to normal so no additional treatments are necessary. In regards to her culture results, she does reports she's had "some itching" and has had a lesion in her vaginal area where she's been applying some cream. She reports the cream is clobetasol (suspect atrophic vaginitis but she is not sure) . Given her history of diabetes and symptoms, advised stopping clobetasol and close follow-up with her PCP Dr. Jimenez DO in [place]. Pt believes she signed record release so results will go to PCP. She reports she has an appointment there next week. If her symptoms worsen in the meantime she will follow up sooner. In the meantime, she may try Monistat [id number] for relief. Re-Evaluation - Re-Evaluation First Eval Re-Evaluation Time: 20:47 Change: Improved Comment: No chest pain, back feels normal. Sister is with pt. Second Eval Re-Evaluation Time: 21:00 Change: Unchanged Comment: EKG shows new LBBB c/w 12/27/16. Pt states she had a heart catheterization less than 2 years ago, and no stents were done, medical management only. Pt does not know if she has hx of LBBB. Will contact Dr. Neris Bass, pt's architectural intern in [place]. Course/Dx - Course Course Of Treatment: A 62 y/o female CHAVO presents to ED s/p heat exhaustion during hike at [email or web address]. Currently, the patient is already doing better at time of arrival and has no CP or SOB. Pt's labs show leukocytosis, hypokalemia, hypomagnesemia, elevated creat. In the ED course, patient recieved Potassium Chloride 40 mEq po, Mag Oxide po, and IV fluids x 2 liters. EKG showed new LBBB since 12/27/16. This was discussed with pt's architectural intern allergist/pediatric pulmonologist, Dr. Peng (covering Dr. Bass). He states that pt's prior EKG's have shown prolongation of QRS in the 106,108,110 range, and that pt had a cadiac cath on 12/27/17 for SOB and atypical chest pain after a normal nuclear scan, which showed a 30% mid LAD lession with nl LV function and medical management was recommended, and pt was taken off Ranexa and isosorbide. Pt's last office visit with Dr. Bass was 03/03/18 and she was doing well. Dr. Peng feels pt can be discharged safely with close follow up in the setting of 2 normal troponins 3 hrs apart. Patient will be discharged with a diagnosis of heat exhaustion, Leukocytosis, Hypomagnesemia, new onset LBBB and Hypokalemia. Follow up with PCP, Dr. Leona Gaona, in 2 days and follow up with Dr. Bass (architectural intern) in 2 days. - Diagnoses Provider Diagnoses: Heat exhaustion, Leukocytosis, Hypokalemia, New onset left bundle branch block (LBBB) - Provider Notifications Time Discussed With Above Provider: 21:21 Instructed by Provider To: Other - Dr. Peng spoke on behalf for Dr. Bass. Will call back with pt EKG history. Advises pt can be discharged. Discharge - Sign-Out/Discharge Documenting (check all that apply): Post-Discharge Follow Up - Discharge Plan Condition: Stable Disposition: HOME Prescriptions: Potassium Chlor TAB* [Potassium Chlor TAB 20 MEQ*] 40 meq PO DAILY #10 tab.er Patient Education Materials: Heat Exhaustion (ED), Hypokalemia (ED), Heatstroke (ED), Leukocytosis (ED), Hypomagnesemia (ED) Referrals: Leona Gaona DO [Doctor of Osteopathy] - 2 Days Additional Instructions: You have a new left bundle branch block on your EKG today. We have discussed this with Dr. Peng who is covering for Dr. Bass, your architectural intern. Your heart catheterization was in December 2017, and showed only 30% blockage in your mid LAD artery with normal LV function. Dr. Peng and I feel that you are a safe discharge at this time, however, you must have definite follow up with Dr. Bass in the next [address] Peng is putting a note in their chart system to be expecting your call. You must go directly to an ER by ambulance if you have any recurrence of chest pain. We have given you a copy of your labs and EKG that were done today. The abnormalities include elevated white blood cell count which we feel is probably a stress response and dehydration, but should definitely be followed up. Also your potassium was 2.9, which we gave you oral replacement for, and have prescribed 5 days more of potassium. Your magnesium was also low, and we gave you oral replacement for that as well. Also your kidney function was decreased. You were given 2 liters of normal saline while you were in the ER today. You will need to have definite follow up with your primary care doctor in [place], and your architectural intern in [place] in the next 2 days. You will need to continue hydrating. Return to the ER if you have any new or worsening symptoms. - Billing Disposition and Condition Condition: STABLE Disposition: Home
== END 2018-03-22 22:09 | disposition home or self-care (01) ==
LOC: ED 16:39
DX: T67.5XXA Heat exhaustion, unspecified, initial encounter (principal); X58.XXXA Exposure to other specified factors, initial encounter; Y93.01 Activity, walking, marching and hiking; Y92.830 Public park as the place of occurrence of the external cause; D72.829 Elevated white blood cell count, unspecified; E87.6 Hypokalemia; I44.7 Left bundle-branch block, unspecified; E83.42 Hypomagnesemia; Z90.5 Acquired absence of kidney; Z82.49 Family history of ischemic heart disease and other diseases of the circulatory system; E11.8 Type 2 diabetes mellitus with unspecified complications; I10 Essential (primary) hypertension; I21.9 Acute myocardial infarction, unspecified; J45.909 Unspecified asthma, uncomplicated
CPT/HCPCS: 36415; 80053; 81003; 81015; 83605; 83735; 84443; 84484; 85025; 85610; 86140; 87086; 87106; 93005; 96360; 99283; A9270-GY